=== PATIENT | male | born 1980 | race African-American/Black ===

== ENCOUNTER 2018-08-21 23:15 | Emergency (ER) | payer OTHER ==
[~2018-08-21] VITALS: Ht 182.9 cm; Wt 63.5 kg
[2018-08-21 23:15] VITALS: BP 93/71
[~2018-08-21 23:15] MED LIST: ANUSOL-HC25 MG RECTAL; PHENERGAN 25 MG25 M1 PO
[2018-08-21] MEDS ORDERED: NOHOMEMEDICATIONS (23:20)
== END 2018-08-22 00:18 | disposition home or self-care (01) ==
LOC: ER 23:15
DX: K64.4 Residual hemorrhoidal skin tags (principal)